=== PATIENT | female | born 1935 | race Caucasian/White ===

== ENCOUNTER 2020-01-06 11:59 | Inpatient (IN) ==
[2020-01-06] MEDS ORDERED: VANCOMYCIN INJ 1,000 MG in SODIUM CHLORIDE 0.9% 250 ML IV STA ×2 (12:31→12:33)
[2020-01-06 13:42] LABS: Basophils # 0.1 10*3/uL (0.0-0.2); Basophils % 0.9 % (0.0-0.8); Eosinophils % 0.1 % (0.00-10.9); Hemoglobin 12.9 GM/DL (12.0-16.0); Immature Granulocytes % 0.4 %; Immature Granulocytes Absolute 0.03 #; Lymphocytes % 12.5 % (21.3-54.2); Mean Corpuscular HGB Conc 32.3 GM/DL (32-36); Mean Corpuscular Volume 95.5 FL (87-102); Mean Platelet Volume 10.3 FL (9.6-12.0); Monocytes % 11.9 % (1.7-12.7); Neutrophils % 74.2 % (38.7-73.9); Platelet Count 143 T/CUMM (130-400); Red Blood Count 4.19 MC/CUMM (3.8-5.5); Red Cell Distribution Width 13.6 % (9.3-17.3); White Blood Count 7.8 T/CUMM (4-12)
[2020-01-06 13:56] LABS: Alanine Aminotransferase 18 U/L (13-56); Albumin 3.6 G/DL (3.4-5.0); Alkaline Phosphatase 65 U/L (45-117); Aspartate Amino Transferase 21 U/L (0-37); Blood Urea Nitrogen 12 MG/DL (7-18); Estimated Glom Filtration Rate 61 ML/MIN; Glucose 204 MG/DL (74-106); Osmolality,Calculated 275.1 MOS/KG (273-304); Total Protein 7.9 G/DL (6.4-8.3)
[2020-01-06 13:56] LABS: Apearance,Urine CLEAR (Clear); Bilirubin,Urine Negative (Negative); Blood, Urine Negative (Negative); Glucose,Urine (UA) Negative (Negative); Ketones,Urine Negative (Negative); Mucus,Urine Occasional /LPF (Occasional); Nitrite,Urine Negative (Negative); Protein,Urine Negative; Squamous Epithelial Cell,Urine Occasional /HPF (0-10); Urine Color Yellow (Yellow); Urine Specific Gravity 1.008 (1.001-1.035); Urine Urobilinogen < 2.0 EU/DL (0.2-1.0)
[2020-01-06] MEDS ORDERED: SODIUM CHLORIDE 0.9% 1,000 ML IV STA (13:59)
[2020-01-06] MEDS ORDERED: ACETAMINOPHEN 325 MG TABLET PO PRN (14:34)
[2020-01-06] MEDS ORDERED: DEXTROSE 10% 250 ML BAG IV PRN (14:34)
[2020-01-06] MEDS ORDERED: ONDANSETRON 4 MG/2 ML VIAL IV PRN (14:34)
[2020-01-06] MEDS ORDERED: GLUCAGON 1 MG VIAL IM PRN ×2 (14:34)
[2020-01-06] MEDS ORDERED: DEXTROSE 50% 25 GM/50 ML VIAL IV PRN (14:34)
[2020-01-06] MEDS ORDERED: INSULIN LISPRO 100 UNIT/ML SUBCUT SCH (16:30)
[2020-01-06] MEDS: INSULIN LISPRO 100 UNIT/ML SUBCUT SCH ×2 (17:43→21:31)
[2020-01-06] MEDS: PIPERACILLIN/TAZOBACTAM 3,375 MG in SODIUM CHLORIDE 0.9% 100 ML IV SCH (17:44)
[2020-01-06] MEDS: POTASSIUM CHLORIDE 20 MEQ TABLET PO SCH (21:32)
[2020-01-06] MEDS: MEMANTINE 10 MG TABLET PO SCH (21:32)
[2020-01-06] MEDS: ENOXAPARIN 30 MG/0.3 ML SYRINGE SUBCUT SCH (21:32)
[2020-01-06] MEDS: METOPROLOL TARTRATE 50 MG TABLET PO SCH (21:32)
[2020-01-06] MEDS: DONEPEZIL 10 MG TABLET PO SCH (21:32)
[2020-01-07] MEDS: PIPERACILLIN/TAZOBACTAM 3,375 MG in SODIUM CHLORIDE 0.9% 100 ML IV SCH ×3 (00:27→18:26)
[2020-01-07 06:06] LABS: Basophils # 0.1 10*3/uL (0.0-0.2); Eosinophils # 0.1 10*3/uL (0.0-0.87); Eosinophils % 1.2 % (0.00-10.9); Hematocrit 35.2 VOL% (35.7-47.0); Hemoglobin 11.3 GM/DL (12.0-16.0); Immature Granulocytes % 0.3 %; Immature Granulocytes Absolute 0.02 #; Lymphocytes # 0.9 10*3/uL (1.4-4.0); Lymphocytes % 14.4 % (21.3-54.2); Mean Corpuscular HGB Conc 32.1 GM/DL (32-36); Mean Corpuscular Volume 95.1 FL (87-102); Mean Platelet Volume 10.5 FL (9.6-12.0); Monocytes % 10.8 % (1.7-12.7); Neutrophils % 72.3 % (38.7-73.9); Platelet Count 123 T/CUMM (130-400); Red Cell Distribution Width 13.4 % (9.3-17.3)
[2020-01-07 06:33] LABS: Calcium 8.2 MG/DL (8.5-10.1); Osmolality,Calculated 271.8 MOS/KG (273-304)
[2020-01-07] MEDS: INSULIN LISPRO 100 UNIT/ML SUBCUT SCH ×4 (09:25→21:38)
[2020-01-07] MEDS: FUROSEMIDE 40 MG TABLET PO SCH (09:27)
[2020-01-07] MEDS: DILTIAZEM CD 240 MG CAPSULE PO SCH (09:27)
[2020-01-07] MEDS: MEMANTINE 10 MG TABLET PO SCH ×2 (09:27→21:13)
[2020-01-07] MEDS: LEVOTHYROXINE 75 MCG TABLET PO SCH (09:27)
[2020-01-07] MEDS: METOPROLOL TARTRATE 50 MG TABLET PO SCH ×2 (09:27→21:13)
[2020-01-07] MEDS: POTASSIUM CHLORIDE 20 MEQ TABLET PO SCH ×2 (09:27→21:13)
[2020-01-07] MEDS: VANCOMYCIN INJ 1,000 MG in SODIUM CHLORIDE 0.9% 250 ML IV SCH (13:02)
[2020-01-07] MEDS ORDERED: diphenhydrAMINE 50 MG/1 ML VIAL IV ONE (20:01)
[2020-01-07] MEDS: DONEPEZIL 10 MG TABLET PO SCH (21:13)
[2020-01-07] MEDS: ENOXAPARIN 30 MG/0.3 ML SYRINGE SUBCUT SCH (21:13)
[2020-01-08] MEDS: PIPERACILLIN/TAZOBACTAM 3,375 MG in SODIUM CHLORIDE 0.9% 100 ML IV SCH ×3 (00:30→16:54)
[2020-01-08] MEDS: VANCOMYCIN INJ 1,000 MG in SODIUM CHLORIDE 0.9% 250 ML IV SCH ×2 (03:13→21:02)
[2020-01-08 06:36] LABS: Basophils # 0.1 10*3/uL (0.0-0.2); Basophils % 1.3 % (0.0-0.8); Eosinophils # 0.1 10*3/uL (0.0-0.87); Eosinophils % 2.3 % (0.00-10.9); Hematocrit 34.6 VOL% (35.7-47.0); Hemoglobin 11.3 GM/DL (12.0-16.0); Immature Granulocytes % 0.4 %; Immature Granulocytes Absolute 0.02 #; Lymphocytes % 17.5 % (21.3-54.2); Mean Corpuscular HGB Conc 32.7 GM/DL (32-36); Mean Corpuscular Volume 93.3 FL (87-102); Mean Platelet Volume 10.6 FL (9.6-12.0); Monocytes % 10.9 % (1.7-12.7); Neutrophils % 67.6 % (38.7-73.9); Platelet Count 133 T/CUMM (130-400); Red Blood Count 3.71 MC/CUMM (3.8-5.5); Red Cell Distribution Width 13.5 % (9.3-17.3); White Blood Count 5.6 T/CUMM (4-12)
[2020-01-08 07:00] LABS: Calcium 8.2 MG/DL (8.5-10.1); Osmolality,Calculated 280.3 MOS/KG (273-304)
[2020-01-08] MEDS: INSULIN LISPRO 100 UNIT/ML SUBCUT SCH ×4 (09:07→21:35)
[2020-01-08] MEDS: FUROSEMIDE 40 MG TABLET PO SCH (09:08)
[2020-01-08] MEDS: POTASSIUM CHLORIDE 20 MEQ TABLET PO SCH ×2 (09:08→21:02)
[2020-01-08] MEDS: DILTIAZEM CD 240 MG CAPSULE PO SCH (09:08)
[2020-01-08] MEDS: METOPROLOL TARTRATE 50 MG TABLET PO SCH ×2 (09:08→21:03)
[2020-01-08] MEDS: LEVOTHYROXINE 75 MCG TABLET PO SCH (09:08)
[2020-01-08] MEDS: MEMANTINE 10 MG TABLET PO SCH ×2 (09:08→21:03)
[2020-01-08] MEDS ORDERED: POTASSIUM CHLORIDE 20 MEQ TABLET PO ONE (11:06)
[2020-01-08] MEDS ORDERED: diphenhydrAMINE CAP 25 MG CAPSULE PO PRN (20:12)
[2020-01-08] MEDS: DONEPEZIL 10 MG TABLET PO SCH (21:02)
[2020-01-08] MEDS: ENOXAPARIN 30 MG/0.3 ML SYRINGE SUBCUT SCH (21:03)
[2020-01-09] MEDS: PIPERACILLIN/TAZOBACTAM 3,375 MG in SODIUM CHLORIDE 0.9% 100 ML IV SCH ×2 (00:54→10:18)
[2020-01-09 07:12] LABS: Basophils # 0.1 10*3/uL (0.0-0.2); Basophils % 1.6 % (0.0-0.8); Eosinophils # 0.2 10*3/uL (0.0-0.87); Eosinophils % 2.7 % (0.00-10.9); Hematocrit 35.2 VOL% (35.7-47.0); Hemoglobin 11.5 GM/DL (12.0-16.0); Immature Granulocytes % 0.2 %; Immature Granulocytes Absolute 0.01 #; Lymphocytes # 0.9 10*3/uL (1.4-4.0); Lymphocytes % 16.1 % (21.3-54.2); Mean Corpuscular HGB Conc 32.7 GM/DL (32-36); Mean Corpuscular Volume 93.9 FL (87-102); Mean Platelet Volume 10.1 FL (9.6-12.0); Monocytes % 7.5 % (1.7-12.7); Neutrophils % 71.9 % (38.7-73.9); Platelet Count 152 T/CUMM (130-400); Red Blood Count 3.75 MC/CUMM (3.8-5.5); Red Cell Distribution Width 13.5 % (9.3-17.3); White Blood Count 5.5 T/CUMM (4-12)
[2020-01-09] MEDS: INSULIN LISPRO 100 UNIT/ML SUBCUT SCH (07:34)
[2020-01-09 07:49] LABS: Calcium 8.3 MG/DL (8.5-10.1); Osmolality,Calculated 280.3 MOS/KG (273-304)
[2020-01-09] MEDS: POTASSIUM CHLORIDE 20 MEQ TABLET PO SCH (10:14)
[2020-01-09] MEDS: LEVOTHYROXINE 75 MCG TABLET PO SCH (10:15)
[2020-01-09] MEDS: MEMANTINE 10 MG TABLET PO SCH (10:15)
[2020-01-09] MEDS: FUROSEMIDE 40 MG TABLET PO SCH (10:15)
[2020-01-09] MEDS: DILTIAZEM CD 240 MG CAPSULE PO SCH (10:17)
[2020-01-09] MEDS: METOPROLOL TARTRATE 50 MG TABLET PO SCH (10:17)
[2020-01-09 11:58] VITALS: BP 138/80
[2020-01-09] MEDS ORDERED: cephALEXin 500 MG CAPSULE PO SCH (21:00)
== END 2020-01-09 12:05 | disposition home health service (06) | DRG 638 ==
LOC: N.ED 11:59 → N.EDINP 14:34 → N.3E 14:55
PROVIDERS: ADMIT Internal Medicine; ATTEND Internal Medicine